=== PATIENT | female | born 1975 | race Caucasian/White ===

== ENCOUNTER 2024-03-11 05:48 | Day surgery (SDC) | payer BC, OTHER ==
[2024-03-11] MEDS ORDERED: fentaNYL 100 MCG/2 ML SDV IV ONE (05:49)
[2024-03-11] MEDS ORDERED: Midazolam 1 MG/ML 2 ML SDV IV ONE (05:49)
[2024-03-11] MEDS ORDERED: Midazolam 1 MG/ML 2 ML SDV ONE (06:15)
[2024-03-11] MEDS ORDERED: fentaNYL 100 MCG/2 ML SDV ONE (06:15)
[2024-03-11] MEDS: Dextrose 5%-0.45% NaCl 1,000 ML IV SCH (06:27)
[2024-03-11] MEDS: fentaNYL 100 MCG/2 ML SDV IV ONE ×2 (07:23→07:24)
[2024-03-11] MEDS: Midazolam 1 MG/ML 2 ML SDV IV ONE ×5 (07:24→07:34)
[2024-03-11] MEDS: Sodium Chloride 0.9% 1,000 ML IV SCH (07:47)
[2024-03-11 09:04] VITALS: BP 99/63; PULSE 68
== END 2024-03-11 09:00 | disposition home or self-care (01) ==
LOC: DL.ENDO 05:48
PROVIDERS: ATTEND Internal Medicine Gastroenterology
DX: Z12.11 Encounter for screening for malignant neoplasm of colon (principal); D12.4 Benign neoplasm of descending colon; K62.1 Rectal polyp; E03.9 Hypothyroidism, unspecified; E66.09 Other obesity due to excess calories; Z68.36 Body mass index [BMI] 36.0-36.9, adult
CPT/HCPCS: 45385; J2250; J3010; J7030; J7042